=== PATIENT | female | born 1975 | race African-American/Black ===

== ENCOUNTER 2018-07-25 14:33 | Emergency (ER) | payer BC, MEDICAID ==
[~2018-07-25] VITALS: Ht 165.1 cm; Wt 63.5 kg
[~2018-07-25 14:33] MED LIST: NKM; NORCO 5-325 TA1 EACH ORAL
--- NOTE | 2018-07-25 14:49 | NUR ---
ED Nurse Note: PT WALKED IN TO ER TODAY FROM HOME. AOX4. PT C/O ONGOING PRODUCTIVE COUGH, SORE THROAT, CONGESTION, AND BODYACHES X 10 DAYS AGO. PT DENIES NAUSEA, VOMITING, OR DIARRHEA. PT STATES SHE WAS SEEN AT [facility] ER X 1 WEEK AGO AND WAS DX'D WITH VIRAL PHARYNGITIS AND NO MEDICATIONS. PT STATES SHE WAS TOLD SYMPTOMS WILL GO AWAY ON THEIR OWN BUT HAVE PERSISTED. NO SIGNS OF RESPIRATORY DISTRESS, RETRACTIONS, OR ACCESSORY MUSCLE USE NOTED. PT ABLE TO SPEAK IN FULL SENTENCES.
[2018-07-25 14:51] VITALS: BP 126/74
--- NOTE | 2018-07-25 14:54 | NUR ---
ED Nurse Note: RESPIRATORY CALLED FOR BREATHING TX.
--- NOTE | 2018-07-25 14:56 | NUR ---
ED Nurse Note: PREDNISONE ORDERED PLACED. AWAITING URINE RESULTS BEFORE ADMINISTERING.
[2018-07-25] MEDS ORDERED: Albuterol/Ipratropium 3ml neb HHN ONE (15:00)
--- NOTE | 2018-07-25 15:15 | NUR ---
ED Nurse Note: RT AT BEDSIDE.
--- NOTE | 2018-07-25 15:24 | Emergency Room Report ---
History of Present Illness General Chief Complaint: Upper Respiratory Illness Source: Patient Present Illness HPI 43-year-old female with history of asthma here complaining of over 2 weeks of cough and congestion with yellow phlegm. Patient went to a different emergency room a week ago and was diagnosed with viral pharyngitis. Patient has been complaining of asthma exacerbation, increased wheezing, shortness of breath. Patient denies fever and chills however complains of sore throat and congestion. Denies abdominal pain, nausea vomiting. Patient has irregular menstruations and wants to be checked for . Denies vaginal bleeding, urinary symptoms. Patient reports that she gets chest tightness every time she coughs however denies pain radiation to left arm and jaw. Allergies: Coded Allergies: METRONIDAZOLE (Verified Allergy, Unknown, 10/17/15) Patient History Past Medical History: see triage record Past Surgical History: unable to obtain Pertinent Family History: none Now: No Immunizations: UTD Reviewed Nursing Documentation: PMH: Agreed; PSxH: Agreed Nursing Documentation-PMH Past Medical History: No Stated History Review of Systems All Other Systems: negative except mentioned in HPI Physical Exam Vital Signs Date Time Temp Pulse Resp B/P (MAP) Pulse Ox O2 Delivery O2 Flow Rate FiO2 07/25/18 14:40 98.2 92 18 129/75 (93) 98 Room Air 07/25/18 15:10 21 Sp02 EP Interpretation: reviewed, normal General Appearance: alert, GCS 15, mild distress Head: normocephalic, atraumatic Eyes: bilateral eye normal inspection, bilateral eye PERRL ENT: normal voice, TMs + canals normal, uvula midline, moist mucus membranes, pharyngeal erythema Neck: normal inspection, full range of motion, supple Respiratory: chest non-tender, normal breath sounds, no rhonchi, no respiratory distress, no accessory muscle use, wheezing - Diffused Cardiovascular #1: normal inspection, normal peripheral pulses, no edema, no murmur, normal capillary refill Gastrointestinal: normal inspection, soft Rectal: deferred Genitourinary: no CVA tenderness Musculoskeletal: normal inspection, back normal, digits/nails normal, gait/ station normal Neurologic: normal inspection, alert, oriented x3 Psychiatric: normal inspection, judgement/insight normal Skin: normal inspection, normal color, no rash Lymphatic: normal inspection, no adenopathy Medical Decision Making PA Attestation All my diagnosis and treatment plans were reviewed ad discussed with my supervising physician Dr. Peña Diagnostic Impression: Primary Impression: Bronchitis Additional Impression: Asthma exacerbation ER Course 43-year-old female with history of asthma here complaining of over 2 weeks of cough and congestion with yellow phlegm. Patient went to a different emergency room a week ago and was diagnosed with viral pharyngitis. Patient has been complaining of asthma exacerbation, increased wheezing, shortness of breath. Patient denies fever and chills however complains of sore throat and congestion. Denies abdominal pain, nausea vomiting. Patient has irregular menstruations and wants to be checked for . Denies vaginal bleeding, urinary symptoms. Patient reports that she gets chest tightness every time she coughs however denies pain radiation to left arm and jaw. Ddx considered but are not limited to: bronchitis, PNA, URI viral, bacterial bronchitis , Vital signs: are WNL, pt. is afebrile H&PE are most consistent with: Acute bacterial bronchitis due to asthma exacerbation ORDERS: Prednisone, breathing treatment, Phenergan with codeine, azithromycin ED INTERVENTIONS: Prednisone and breathing treatment DISCHARGE: At this time pt. is stable for d/c to home. Will provide printed patient care instructions, and any necessary prescriptions. Care plan and follow up instructions have been discussed with the patient prior to discharge. Advised the patient to follow-up with a primary care provider take medication as directed use albuterol inhaler as needed for wheezing at this point no further testing or chest x-ray needed patient is negative for and can take all of the above medication. Last Vital Signs Date Time Temp Pulse Resp B/P (MAP) Pulse Ox O2 Delivery O2 Flow Rate FiO2 07/25/18 15:22 86 20 100 Room Air 07/25/18 15:10 21 07/25/18 14:51 98.4 126/74 Disposition: HOME, SELF-CARE Condition: Stable Scripts Promethazine HCl/Codeine (Prometh-Codein 6.25-10 mg/5 ml) 5 Ml Syrup 5 ML PO TID, #60 ML Prov: Stacia Carrera 07/25/18 Prednisone (Prednisone) 20 Mg Tablet 20 MG PO BID for 5 Days, #10 TAB Prov: Stacia Carrera 07/25/18 Azithromycin* (ZITHROMAX*) 250 Mg Tablet 250 MG ORAL DAILY, #6 TAB 0 Refills Take two tables once daily for 1 day, then one tablet once daily for 4 days. Prov: Stacia Carrera 07/25/18 Patient Instructions: Acute Bronchitis, [id number], Asthma, Adult, Easy-to- Read Additional Instructions: Take medication as directed follow-up with your primary care provider avoid smoking Stacia Carrera Jul 25, 2018 15:24
[2018-07-25] MEDS ORDERED: ZITHROMAX250 MG ORAL (15:27)
[2018-07-25] MEDS ORDERED: PROMETH-CODEIN 65 ML PO (15:27)
[2018-07-25] MEDS ORDERED: PREDNISONE20 M1 PO (15:27)
[2018-07-25 15:36] VITALS: BP 122/76
--- NOTE | 2018-07-25 15:36 | NUR ---
ED Nurse Note: PT LAYING PEACEFULLY IN BED IN NAD. AOX4. PRESCRIPTIONS AND DISCHARGE PAPERWORK EXPLAINED TO PT. PT VERBALIZES UNDERSTANDING AND ALL QUESTIONS ANSWERED. PRESCRIPTIONS AND DISCHARGE PAPERWORK GIVEN TO PT AND ID WRISTBAND REMOVED. PT WALKED OUT OF ER WITH STEADY GAIT AND ALL BELONGINGS.
== END 2018-07-25 15:37 | disposition home or self-care (01) ==
LOC: EMR 15:20
DX: J20.9 Acute bronchitis, unspecified (principal); J45.901 Unspecified asthma with (acute) exacerbation; Z88.8 Allergy status to other drugs, medicaments and biological substances
CPT/HCPCS: 81025; 94640; 94664; 99284; J7512